=== PATIENT | female | born 1965 | race Caucasian/White ===

== ENCOUNTER 2019-09-04 21:46 | Emergency (ER) | payer OTHER ==
[2019-09-04] MEDS ORDERED: EPINEPHrine 1 MG/1 ML Amp IV ONE (21:47)
--- NOTE | 2019-09-04 22:58 | EDM.PDOC ---
ED HPI GENERAL MEDICAL PROBLEM - General Chief Complaint: CPR in Progress Stated Complaint: AMBULANCE Time Seen by Provider: 09/04/19 22:46 Source of Information: Reports: EMS, Family, Significant Other History Limitations: Reports: Language Barrier - History of Present Illness INITIAL COMMENTS - FREE TEXT/NARRATIVE: Charlotte is 53 years who was brought into the ER by EMS unresponsive. Patient was found hanging by the tree outside her home by her . Her reports he does not know how long she has been hanging. Patient's reports not seeing the patient about two hours before she was found. Her reports he had a casual agreement about football, wine and dinner. He states he went to bed as he was tired but patient did not come to bed and he went looking for her when he found her hanging on a tree by the tie of her wardrobe. The cut the tie and started performing CPR while calling 911. The paramedics performed CPR at the scene and on their way to the ER. Two failed intubations attempted. Patient was in asystole when the paramedics arrived. CPR alongside Epi was administered twice with no response ED ROS GENERAL - Review of Systems Review Of Systems: Unable To Obtain Reason Not Obtained: unresponsive ED EXAM, GENERAL - Physical Exam Exam: See Below Exam Limited By: Other (Unresponsive) General Appearance: Mild Distress Eye Exam: Bilateral Eye: Vision Changes (pupils 5 mm dilated) Throat/Mouth: Other (vomitus noted in the mouth with oropharyngeal airway in placed) Neck: Other (ligature ferguson of stangulation noted on the neck) Respiratory/Chest: Other (unreponsive) Peripheral Pulses: 0: Carotid (L), Carotid (R), Radial (L), Radial (R), Femoral (L), Femoral (R), Posterior Tibial (L), Posterior Tibial (R), Dorsalis Pedis (L) , Dorsalis Pedis (R) GI/Abdominal: Other (bowel and urine noted on her clothing) Neurological: Unresponsive Skin Exam: Cool, Cyanosis, Mottled Course - Re-Assessments/Exams Free Text/Narrative Re-Assessment/Exam: On arrival to the ER, patient was unresponsive as documented in the exam, CRP with Epi administration continued for 8 minutes in the ER. Warm IV fluids and bear hugger applied. Cardiac rhythm was asystole. CPR was performed for a total of 30 minutes with two failed attempts of intubation. Patient was pronounced at 2152. Family was presents and sem manager visited with them. 09/05/19 14:46 Departure - Departure Time of Disposition: 21:52 Disposition: Home, Self-Care 01 Clinical Impression: - Discharge Information Referrals: PCP,None [Primary Care Provider] - Forms: ED Department Discharge Sepsis Event Note - Focused Exam Date Exam was Performed: 09/05/19 Time Exam was Performed: 14:46
== END 2019-09-05 00:34 | disposition home or self-care (01) ==
LOC: EDBD → DL.ED 21:46
DX: T71.162A Asphyxiation due to hanging, intentional self-harm, initial encounter (principal); I46.9 Cardiac arrest, cause unspecified
CPT/HCPCS: 92950; 99284; J0171